=== PATIENT | female | born 1955 | race American Indian/Alaskan Native ===

== ENCOUNTER 2017-10-31 06:24 | Day surgery (SDC) | payer BC, MEDICARE ==
[~2017-10-31 06:24] MED LIST: ANCEF/STERILE WATER 2 GM/20 ML 2 GM/20 ML SYRINGE IV NR; LACTATED RINGERS 1,000 ML IV SCH; LOVENOX SUB-Q NR; MORPHINE IV PRN; NORCO 5/325 PO PRN; PERCOCET 5/325 PO PRN
[2017-10-31] MEDS ORDERED: NACL BACTERIOSTATIC INFILTRATI ONE (06:32)
[2017-10-31] MEDS ORDERED: LOVENOX SUB-Q NR (07:00)
[2017-10-31] MEDS ORDERED: ANCEF/STERILE WATER 2 GM/20 ML 2 GM/20 ML SYRINGE IV NR (07:00)
[2017-10-31] MEDS ORDERED: DIPRIVAN 10 MG/ML IV ONE (07:33)
[2017-10-31] MEDS ORDERED: XYLOCAINE MPF 2% ONE (07:37)
[2017-10-31] MEDS ORDERED: SUBLIMAZE ONE (07:37)
[2017-10-31] MEDS ORDERED: ZEMURON IV ONE (07:37)
--- NOTE | 2017-10-31 07:40 | Anesthesia Day of Surgery ---
Anesthesia Day of Surgery - Day of Surgery Patient Examined: Yes Patient H&P Reviewed: Yes Patient is NPO: Yes
[2017-10-31] MEDS ORDERED: DILAUDID IV PRN (07:41)
[2017-10-31] MEDS ORDERED: ZOFRAN IV PRN (07:41)
--- NOTE | 2017-10-31 07:41 | Anesthesia Consultation ---
Anesthesia Consult and Med Hx Date of service: 10/31/17 - Airway Anesthetic Teeth Evaluation: Good ROM Head & Neck: Adequate Mental/Hyoid Distance: Adequate Mallampati Class: Class III Intubation Access Assessment: Probably Good - Pulmonary Exam CTA: Yes - Pre-Operative Health Status ASA Pre-Surgery Classification: ASA3 Proposed Anesthetic Plan: General - Cardiovascular System Hx Hypertension: Yes (5 YEARS) - Central Nervous System Hx Psychiatric Problems: No - Other Systems Hx Alcohol Use: No Hx Substance Use: No Hx Cancer: No
[2017-10-31] MEDS ORDERED: LACTATED RINGERS 1,000 ML IV SCH (08:00)
[2017-10-31] MEDS ORDERED: VERSED IV NR (08:00)
[2017-10-31] MEDS ORDERED: MARCAINE 0.5% INFILTRATI ONE ×2 (08:05→08:06)
[2017-10-31] MEDS ORDERED: XYLOCAINE 1% 20 mL ONE (08:05)
[2017-10-31] MEDS ORDERED: DILAUDID ONE (09:44)
[2017-10-31] MEDS ORDERED: ROBINUL ONE ×2 (10:17→10:30)
[2017-10-31] MEDS ORDERED: NEOSTIGMINE ONE (10:17)
[2017-10-31] MEDS ORDERED: NACL 0.9% 1000 ML 1,000 ML ONE (10:28)
[2017-10-31] MEDS ORDERED: TRIPLE ANTIBIOTIC TP ONE (11:35)
--- NOTE | 2017-10-31 12:21 | Discharge Summary ---
Providers - Providers Date of discharge: 10/31/17 Attending physician: VIDYA ESPAÑA Primary care physician: SHELLIE PATINO Hospitalization Condition: Good Procedures: Lap Hiatal Hernia and Ventral Hernia Repair Disposition: DC-01 TO HOME OR SELFCARE Core Measure Documentation - Palliative Care Palliative Care/ Comfort Measures: Not Applicable - Core Measures Any of the following diagnoses?: none Exam - Constitutional Vitals: Temp Pulse Resp BP Pulse Ox 97.4 F L 72 12 152/83 97 10/31/17 10:54 10/31/17 11:30 10/31/17 11:30 10/31/17 11:30 10/31/17 11:30 General appearance: Present: no acute distress, well-nourished - EENT Eyes: Present: PERRL, EOM intact ENT: hearing intact, clear oral mucosa, dentition normal - Neck Neck: Present: supple, normal ROM - Respiratory Respiratory: bilateral: CTA - Cardiovascular Rhythm: regular - Extremities Extremities: no ischemia, pulses intact, No edema, normal temperature, Full ROM Peripheral Pulses: within normal limits - Abdominal General gastrointestinal: Present: soft, non-tender, normal bowel sounds Female genitourinary: Present: deferred - Rectal Rectal Exam: deferred - Integumentary Integumentary: Present: clear, warm, dry - Musculoskeletal Musculoskeletal: strength equal bilaterally - Psychiatric Psychiatric: appropriate mood/affect Plan Activity: no restrictions Diet: regular Wound: keep clean and dry Follow up with: SHELLIE PATINO MD [Primary Care Provider] - 7 Days VIDYA ESPAÑA MD [Staff Physician] - 7 Days Prescriptions: oxyCODONE /ACETAMINOPHEN [Percocet 5/325 mg] 1 tab PO Q6H PRN #30 tablet PRN Reason: Pain, Moderate (4-6)
--- NOTE | 2017-10-31 12:38 | Post Anesthesia Evaluation ---
- Post Anesthesia Evaluation Patient Participated: Yes Airway Patent: Yes Stable Respiratory Function: Yes Nausea/Vomiting: No Temp > 96.8F: Yes Pain Manageable: Yes Adequeate Hydration: Yes Anesthesia Complications: No
[2017-10-31] MEDS ORDERED: NACL 0.9% IR ONE (13:59)
[2017-10-31] MEDS ORDERED: MARCAINE 0.25% INFILTRATI ONE (14:00)
[2017-10-31] MEDS ORDERED: XYLOCAINE 1% 20 mL INFILTRATI ONE (14:00)
[2017-10-31 14:02] VITALS: BP 148/89
== END 2017-10-31 13:35 | disposition home or self-care (01) ==
LOC: OR 06:24
PROVIDERS: ATTEND Specialist
DX: K43.6 Other and unspecified ventral hernia with obstruction, without gangrene (principal); K44.9 Diaphragmatic hernia without obstruction or gangrene; I10 Essential (primary) hypertension; E11.9 Type 2 diabetes mellitus without complications; Z90.710 Acquired absence of both cervix and uterus; Z98.890 Other specified postprocedural states; Z88.2 Allergy status to sulfonamides; Z79.84 Long term (current) use of oral hypoglycemic drugs
CPT/HCPCS: 36415; 49653; 82962; 84132; C1781; J0690; J1170; J1650; J2250; J2704; J2710; J3010; J7030; J7120; A6250